=== PATIENT | male | born 1985 | race Caucasian/White ===

== ENCOUNTER 2016-05-11 12:45 | Emergency (ER) | payer OTHER ==
[2016-05-11 15:07] LABS: BASOPHIL 0.4 % (0-2); EOSINOPHIL 1.4 % (0-5); HCT 44.5 % (42.0-52.0); HGB 15.5 g/dl (13.2-18.0); LYMPHOCYTE 29.4 % (15-48); MCH 31.4 pg (25.0-31.0); MCHC 34.8 g/dL (32.0-36.0); MCV 90.1 fL (78.0-100.0); MONOCYTE 6.2 % (0-12); NEUTROPHIL 62.6 % (41-80); PLT 204 K/uL (150-400); RBC 4.94 M/uL (4.70-6.00); WBC 5.6 K/uL (4.0-10.5)
[2016-05-11 15:19] LABS: ALCOHOL (ETOH) MEDICAL NONE DETECTED
[2016-05-11 15:24] LABS: ALBUMIN 4.6 g/dL (3.5-5.0); BILIRUBIN - TOTAL 0.4 mg/dL (0.1-1.0); CREATININE 0.9 mg/dL (0.7-1.2); GLOBULIN (CALCULATION) 2.5 g/dL (2.2-4.2); POTASSIUM 3.7 mmol/L (3.5-5.1); TOTAL PROTEIN 7.1 g/dL (6.4-8.3)
== END 2016-05-11 16:41 | disposition home or self-care (01) ==
LOC: FER 12:45
PROVIDERS: Emergency Medicine
DX: F41.9 Anxiety disorder, unspecified (principal); F17.210 Nicotine dependence, cigarettes, uncomplicated
CPT/HCPCS: 36415; 80053; 84439; 84443; 85025; 99284; G0480